=== PATIENT | female | born 1945 | race Caucasian/White ===

== ENCOUNTER 2017-08-07 09:41 | Emergency (ER) | payer MEDICARE, OTHER ==
[2017-08-07] MEDS ORDERED: HYDROcodone/Acetaminophen 10/325 mg Tablet ONE (10:05)
[2017-08-07] MEDS ORDERED: Naproxen 500 MG TAB ONE (10:05)
--- NOTE | 2017-08-07 10:28 | CT ---
CT HEAD NONCONTRAST: Date: 08/07/17 HISTORY: Fall. Head injury. FINDINGS: No comparison. There is no evidence of acute intracranial hemorrhage or infarct. Diffuse cortical atrophy and mild c hronic ischemic small vessel disease are again demonstrated. 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 There is no mass effect or shift of midline stru ctures. Fluid layers within the dependent portion of the left maxillary sinus and is hyperdense. Other visual ized paranasal sinuses remain well aerated. IMPRESSION: 1. No acute intracranial abnormalities are demonstrated. 2. Hyperdense fluid layering within the dependent portion of the left maxillary sinus may represent blood. Clinical correlation regarding other signs and symptoms of left maxillary sinus trauma is requ ired. POS: [facility]
--- NOTE | 2017-08-07 10:30 | RAD ---
LEFT ANKLE 3 VIEWS: Date: 08/07/17 HISTORY: Fall. COMPARISON: None. FINDINGS: There is deformity of the anterolateral tibial plafond, age-indeterminate. The lateral [id number] ev aluation is limited due to obliquity. Distal fibula appears to be intact. There is lucency of the medial margin of the talar dome. IMPRESSION: 1. Limited due to obliquity. There is irregularity of the anterolateral tibial plafond which may rep resent an impaction fracture. 2. Lucency of the medial talar dome suggestive of osteochondral injury. 3. Inadequate lateral radiographs. Recommend repeat lateral radiograph. POS: [facility]
--- NOTE | 2017-08-07 10:34 | RAD ---
LEFT FOOT THREE VIEW: History: Fall. Comparison: None. FINDINGS: No fracture. No malalignment. Mild degenerative disease of the great toe tarsal metatarsal joint. Lis franc interval appears to be maintained. IMPRESSION: Degenerative changes. No acute abnormality. POS: [facility]
--- NOTE | 2017-08-07 10:51 | CT ---
CT FACE WITHOUT CONTRAST: HISTORY: Fall, left facial trauma. COMPARISON: None. FINDINGS: There is anterolisthesis of C4 over C5 incompletely evaluated on this facial CT examination. There i s a left infraorbital soft tissue contusion as well as laceration. There is a nondisplaced fracture of the anterior right maxillary wall. No orbital floor blowout fracture. There is a small punctate focus of gas along the inferior margin of the right orbit. No nasal bone fracture. There is layering hemorrhage within the left maxillary sinus. Nasal bones are intact. The medial orbital holland and lateral orbital holland are intact. Zygoma and z ygomatic arches and orbital roofs are intact. The hyoid bone is intact. Dense calcifications of the proximal internal carotid arteries. The masto ids are clear. 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 Th e mandible is intact. IMPRESSION: 1. Nondisplaced left anterior maxillary wall fracture with a small focus of overlying soft tissue co ntusion and subcutaneous gas. There is a small volume layering left hemosinus within the maxillary s inus. 2. Incompletely evaluated anterolisthesis of C4 over C5 may be degenerative in nature, although inco mpletely evaluated on this facial CT. POS: [facility]
== END 2017-08-07 13:31 | disposition home or self-care (01) ==
LOC: MADERS 09:41
DX: S02.42XA Fracture of alveolus of maxilla, initial encounter for closed fracture (principal); S82.872A Displaced pilon fracture of left tibia, initial encounter for closed fracture; S92.192A Other fracture of left talus, initial encounter for closed fracture; I10 Essential (primary) hypertension; Z79.899 Other long term (current) drug therapy; W19.XXXA Unspecified fall, initial encounter; Y92.009 Unspecified place in unspecified non-institutional (private) residence as the place of occurrence of the external cause
CPT/HCPCS: 70450; 70486

== ENCOUNTER 2022-08-12 10:29 | Emergency (ER) | payer MEDICARE, SELFPAY ==
[~2022-08-12 10:29] MED LIST: Iopamidol 370 76% 100 ML VIAL ONE
[2022-08-12] MEDS ORDERED: Sodium Chloride 0.9% 1,000 ML ONE ×4 (10:42→20:04)
[2022-08-12 11:45] LABS: ALT (SGPT) 47 U/L (8-55); AST (SGOT) 60 U/L (5-34); Albumin 3.7 g/dL (3.4-4.8); Alkaline Phosphatase 84 U/L (40-110); Anion Gap 25 mmol/L (10-20); BUN (Urea Nitrogen) 51 mg/dL (9.8-20.1); Bilirubin, Total 0.9 mg/dL (0.2-1.2); Calc. Creatinine Clearance 0 mL/min (70-130); Calcium 10.9 mg/dL (7.8-10.44); Carbon Dioxide 15 mmol/L (23-31); Chloride 106 mmol/L (98-107); Estimated GFR 53; Globulin 4.4 g/dL (2.4-3.5); Glucose 127 mg/dL (83-110); Lipase 30 U/L (8-78); Magnesium 2.8 mg/dL (1.6-2.6); Potassium 3.4 mmol/L (3.5-5.1); Protein, Total 8.1 g/dL (5.8-8.1); Sodium 143 mmol/L (136-145)
[2022-08-12 12:05] LABS: Acetaminophen Less than 10.0 mcg/mL (10.0-30.0); Alcohol Less than 10 mg/dL (Less than 10); CK (CPK) 3266 U/L (29-168); Salicylate Less than 8.0 mg/dL (15.0-30.0)
[2022-08-12 12:38] LABS: Bilirubin Small (Negative); Blood, Urine Moderate (Negative); Clarity Slightly Cloudy (Clear); Glucose, Urine (Dipstick) Negative (Negative); Ketone, Urine Negative (Negative); Leukocyte Moderate (Negative); Nitrite Negative (Negative); Protein, Urine (Dipstick) 30 mg/dL (Neg-Trace); Urobilinogen 0.2 mg/dL (Less than 2)
[2022-08-12 12:40] LABS: Bacteria/HPF 3+ HPF (None Seen); Squamous Epithelial 0-3 HPF (0-3)
[2022-08-12 12:52] LABS: Amphetamine Not Detected (NotDetected); Barbiturates Screen Not Detected (NotDetected); Benzodiazepine Screen Not Detected (NotDetected); Cocaine Metabolite Screen Not Detected (NotDetected); Medtox Control Line Valid? VALID (VALID); Methadone Not Detected (NotDetected); Methamphetamine Not Detected (NotDetected); Opiate Screen Not Detected (NotDetected); Oxycodone Screen Not Detected (NotDetected); Phencyclidine (PCP) Not Detected (NotDetected); THC/Cannabinoid Screen Not Detected (NotDetected); Tricyclic Screen Not Detected (NotDetected)
[2022-08-12 13:19] LABS: #Lymphocytes 0.5 thou/uL (1.20-3.40); #Monocytes 1.5 thou/uL (0.11-0.59); #Neutrophils 15.9 thou/uL (1.40-6.50); %Basophils 0.3 % (0.0-1.0); %Lymphocytes 2.9 % (21.0-51.0); %Monocytes 8.2 % (0.0-10.0); %Neutrophils 88.6 % (42.0-75.0); Hemoglobin 12.2 g/dL (12.0-16.0); Mean Corpuscular HGB CONC 32.7 g/dL (32.0-36.0); Mean Corpuscular Hemoglobin 27.1 pg (27.0-31.0); Mean Corpuscular Volume 83.1 fl (78.0-98.0); Mean Platelet Volume 6.6 fL (7.4-10.4); Platelet Count 443 10x3/uL (130-400); RBC Distribution Width 11.6 % (11.5-14.5); White Blood Cell (WBC) Count 17.9 10x3/uL (4.8-10.8)
[2022-08-12 13:27] LABS: INR-International Normal Ratio 1.2; Prothrombin Time 15.8 sec (12.0-14.7)
[2022-08-12 13:54] LABS: SARS-CoV-2 NAA Rapid Test DETECTED (NotDetected)
[2022-08-12] MEDS ORDERED: Ketorolac Tromethamine 30 MG/ML VIAL ONE (19:44)
[2022-08-12 20:24] LABS: Lactic Acid 4.8 mmol/L (0.5-2.2)
[2022-08-13 07:02] LABS: #Monocytes 1.2 thou/uL (0.11-0.59); #Neutrophils 12.4 thou/uL (1.40-6.50); %Basophils 0.3 % (0.0-1.0); %Eosinophils 0.2 % (0.0-10.0); %Monocytes 8.3 % (0.0-10.0); %Neutrophils 84.2 % (42.0-75.0); Hemoglobin 9.8 g/dL (12.0-16.0); Mean Corpuscular HGB CONC 33.5 g/dL (32.0-36.0); Mean Corpuscular Hemoglobin 27.8 pg (27.0-31.0); Mean Corpuscular Volume 82.9 fl (78.0-98.0); Mean Platelet Volume 6.3 fL (7.4-10.4); Platelet Count 417 10x3/uL (130-400); RBC Distribution Width 11.6 % (11.5-14.5); Red Blood Cell (RBC) Count 3.51 mill/uL (4.20-5.40); White Blood Cell (WBC) Count 14.7 10x3/uL (4.8-10.8)
[2022-08-13 07:29] LABS: Anion Gap 13 mmol/L (10-20)
[2022-08-13 07:36] LABS: BUN (Urea Nitrogen) 42 mg/dL (9.8-20.1); Calc. Creatinine Clearance 0 mL/min (70-130); Carbon Dioxide 18 mmol/L (23-31); Chloride 111 mmol/L (98-107); Estimated GFR 59; Sodium 139 mmol/L (136-145)
[2022-08-13 07:37] LABS: ALT (SGPT) 34 U/L (8-55); AST (SGOT) 42 U/L (5-34); Albumin 2.5 g/dL (3.4-4.8); Alkaline Phosphatase 58 U/L (40-110); Bilirubin, Total 0.6 mg/dL (0.2-1.2); CK (CPK) 1808 U/L (29-168); Calcium 8.7 mg/dL (7.6-10.4); Globulin 2.7 g/dL (2.4-3.5); Glucose 88 mg/dL (83-110); Protein, Total 5.2 g/dL (5.8-8.1)
[2022-08-13] MEDS ORDERED: Potassium Chloride 20 MEQ TAB ONE (10:51)
== END 2022-08-13 13:43 | disposition short-term general hospital (02) ==
LOC: MADERS 10:29
DX: U07.1 COVID-19 (principal); M62.82 Rhabdomyolysis; A41.9 Sepsis, unspecified organism; N39.0 Urinary tract infection, site not specified; I10 Essential (primary) hypertension
CPT/HCPCS: 36415; 51701; 70450; 71260; 72125; 74177; 80053; 80306; 80307; 81003; 81015; 82550; 83605; 83690; 83735; 84443; 84484; 85025; 85610; 85730; 87040; 87077; 87086; 87186; 93005; 96361; 96365; 96375; J1885; J1956; J7050; Q9967; U0002

== ENCOUNTER 2025-06-20 18:11 | Outpatient (CLI) | payer MEDICAID, MEDICARE, SELFPAY ==
[2025-06-20 18:23] LABS: #Basophils 0.1 thou/uL (0.0-0.2); #Eosinophils 0.3 thou/uL (0.0-0.7); #Lymphocytes 1.9 thou/uL (1.20-3.40); #Monocytes 0.4 thou/uL (0.11-0.59); #Neutrophils 7.3 thou/uL (1.40-6.50); %Basophils 0.8 % (0.0-1.0); %Eosinophils 2.6 % (0.0-10.0); %Lymphocytes 19.1 % (21.0-51.0); %Monocytes 4.3 % (0.0-10.0); %Neutrophils 73.2 % (42.0-75.0); Hematocrit 38.1 % (36.0-47.0); Hemoglobin 11.6 g/dL (12.0-16.0); Mean Corpuscular Hemoglobin 27.0 pg (27.0-31.0); Mean Corpuscular Volume 88.8 fl (78.0-98.0); Platelet Count 379 10x3/uL (130-400); Red Blood Cell (RBC) Count 4.29 mill/uL (4.20-5.40); White Blood Cell (WBC) Count 10.0 10x3/uL (4.8-10.8)
[2025-06-20 18:36] LABS: ALT (SGPT) 12 U/L (Less than 34); AST (SGOT) 17 U/L (11-34); Albumin 3.3 g/dL (3.1-4.5); Alkaline Phosphatase 114 U/L (40-110); Anion Gap 17 mmol/L (10-20); BUN (Urea Nitrogen) 14 mg/dL (9.8-20.1); Bilirubin, Total 0.2 mg/dL (0.3-1.2); Calc. Creatinine Clearance 0 mL/min (70-130); Calcium 9.0 mg/dL (7.8-10.44); Carbon Dioxide 22 mmol/L (23-31); Cardiac Risk 4.4 (Less than 4.5); Chloride 103 mmol/L (98-107); Cholesterol 192 mg/dl (< 200 Desired); Globulin 3.3 g/dL (2.4-3.5); Glucose 80 mg/dL (83-110); HDL Cholesterol 44 mg/dL (>60 Neg Risk); LDL Cholesterol, Calculated 107 mg/dL; Magnesium 1.8 mg/dL (1.6-2.6); Potassium 3.6 mmol/L (3.5-5.1); Sodium 138 mmol/L (136-145); Triglycerides 206 mg/dL (Less than 150)
[2025-06-21 00:24] LABS: Vitamin B12 618.0 pg/mL (211-911)
[2025-06-21 00:51] LABS: Vitamin D, 25 Hydroxy 35.6 ng/ml (> 30.0)
== END 2025-06-20 18:12 | disposition home or self-care (01) ==
LOC: MADLAB 18:11
PROVIDERS: ATTEND Nurse Practitioner Primary Care
DX: I10 Essential (primary) hypertension (principal); E87.6 Hypokalemia; I67.9 Cerebrovascular disease, unspecified
CPT/HCPCS: 80053; 80061; 82306; 82607; 82746; 83036; 83735; 84443; 85025